=== PATIENT | male | born 1970 | race Caucasian/White ===

== ENCOUNTER 2019-02-16 12:22 | Emergency (ER) | payer OTHER, SELFPAY ==
--- NOTE | 2019-02-16 12:29 | NUR.NOTE ---
Nursing Note: pt has a a cold that has been progressing for the pat week productive dark gree mucous
[2019-02-16 12:30] VITALS: BP 176/100; PULSE 70; RESP 16; TEMP 36; O2SAT 96
--- NOTE | 2019-02-16 12:56 | ED.GENADUL_ITS ---
Discharge Plan Disposition Patient Disposition: HOME Condition: Improving Discharge Details Chief Complaint: RespSymp Clinical Impression: Acute bronchitis Primary Care Provider: None,None ED Provider: Mario Ahmadi Home Meds and New Rx's Prescriptions: New amoxicillin-pot clavulanate 875-125 mg tablet 1 tab PO BID 10 Days Qty: 20 RF: 0 Continued mesalamine [Asacol] 400 MG tablet,delayed release (DR/EC) 400 mg PO BID Qty: 180 RF: 4 lorazepam [Ativan] 1 MG tablet 1 mg PO HS Qty: 30 RF: 1 Discharge Instructions Instructions: Acute Bronchitis (ED) Additional Instructions: Home to rest today. Small, frequent sips of fluids to maintain hydration. Take antibiotics as prescribed. Tylenol and/or ibuprofen as needed for discomfort. Return for any acute concerns. Follow-up with regular doctor if not improving in 5 to 7 days time. Medical Decision Making 48-year-old male, former [id number] smoker, presents with 10+ days of cough, congestion, production of sputum as well as sinus pain and pressure. He is afebrile and well-appearing. Noted to have slightly elevated blood pressure. His exam is reassuring. His history is consistent with a developing bronchitis and sinusitis. I will place him on a course of Augmentin. He understands homecare as well as follow-up/return precautions. Stable for discharge at this time. HPI General Mode of arrival: ambulatory . Date/Time Provider Initiated Documentation: 02/16/19 12:48 . Limitations to Documentation: no limitations . Information obtained by: patient . History of Present Illness 48 year old M presents to the emergency department with the chief complaint of Cough, sinus pressure, production of sputum over 10 days, described as moderate, Quality is described as dull and constant, Patient reports no radiation. Patient started experiencing this day(s) and it has been constant. No relieving factors improve symptom(s), No exacerbating factors reported . Patient notes fever/chills and malaise; denies chest pain, nausea/vomiting and shortness of breath. Patient did receive the following treatments prior to arrival, none Related Data Home Medications Medication Instructions Recorded Confirmed mesalamine [Asacol] 400 mg PO BID #180 10/30/12 lorazepam [Ativan] 1 mg PO HS #30 tab 08/06/14 amoxicillin-pot clavulanate 1 tab PO BID 10 Days #20 tab 02/16/19 Previous Rx's Medication Instructions Recorded amoxicillin-pot clavulanate 1 tab PO BID 10 Days #20 tab 02/16/19 Allergies Allergy/AdvReac Type Severity Reaction Status Date / Time No Known Allergies Allergy Unverified 09/05/14 13:08 General Stated Complaint: RespSymp BIJAN: 4 Review of Systems Review of Systems 6 systems reviewed and otherwise negative Exam Narrative Exam Narrative: GEN: awake, alert, oriented 3. Pleasant, well groomed, interactive. HEAD: Normocephalic, atraumatic ENT: Mucous membranes moist, oropharynx unremarkable, External ear exam unremarkable EYES: PERRL, EOMI NECK: Full ROM, no JEANINE, no menigismus CHEST/RESP: Nontender, clear to auscultation bilateral, no wheeze/rhonchi/rales CARDIOVASCULAR: RRR, no murmur, rub vishal. 2+ Rad pulse bilateral ABDOMEN: Soft, nontender, no mass. +Bowel sounds EXT: Full ROM, no edema, no rash Neuro: Grossly normal neurologic exam, conversant, interactive. Psych: Speech fluent, thoughts congruent, affect normal Course Vital Signs Temperature 36 C L 02/16/19 12:30 Pulse 70 02/16/19 12:30 Respiratory Rate 16 02/16/19 12:30 Blood Pressure 176/100 H 02/16/19 12:30 Pulse Oximetry 96 02/16/19 12:30 Temperature 36 C L 02/16/19 12:30 Temperature Source Skin 02/16/19 12:30 Pulse 70 02/16/19 12:30 Respiratory Rate 16 02/16/19 12:30 Respiratory Effort Non-Labored 02/16/19 12:45 Respiratory Depth Normal 02/16/19 12:37 Blood Pressure 176/100 H 02/16/19 12:30 Blood Pressure Position Sitting 02/16/19 12:30 Pulse Oximetry 96 02/16/19 12:30 Oxygen Delivery Method Room Air 02/16/19 12:30 Oxygen Flow Rate 0 02/16/19 12:30 Pain Level 2 02/16/19 12:30 Lab/Test Results Lab/Test Results: 02/16/19 12:40 Pharynx Streptococcus Screen (MITALI) - Pending POC Strep Test-AGA(Rapid) Start: 09/07/19 12:45 Freq: .Rapid Strep Test Status: Active Protocol: Document 02/16/19 12:49 MMQ (Rec: 02/16/19 12:49 MMQ [id number]) Strep test-AGA(Rapid)-POC POC-Strep test-AGA (Rapid) Negative POC-Strep test-AGA (Rapid) Negative
== END 2019-02-16 13:05 | disposition home or self-care (01) ==
LOC: ER 13:22
PROVIDERS: Emergency Provider Emergency Medicine
DX: J20.9 Acute bronchitis, unspecified (principal); J01.90 Acute sinusitis, unspecified; Z87.891 Personal history of nicotine dependence
CPT/HCPCS: 87880; 99283; 87081

== ENCOUNTER 2020-07-10 13:27 | Emergency (ER) | payer OTHER, SELFPAY ==
[2020-07-10 13:34] VITALS: BP 153/99; PULSE 70; RESP 18; TEMP 36.7; O2SAT 99
--- NOTE | 2020-07-10 13:52 | ED.GENADUL_ITS ---
Discharge Plan Disposition Patient Disposition: HOME Condition: Good Discharge Details Clinical Impression: Olecranon bursitis Primary Care Provider: None,None ED Provider: Jojo Patel Home Meds and New Rx's Prescriptions: No Action cephalexin [Keflex] 250 mg capsule 250 mg PO QID 7 Days Qty: 28 RF: 0 ibuprofen 600 mg tablet 600 mg PO Q6H PRN (Reason: pain) Qty: 60 RF: 3 Discharge Instructions Instructions: Elbow Bursitis (ED) Additional Instructions: At this point, particularly as you are symptoms are improving, this does not appear infectious. Rather, your bursitis is likely associated with your heavy lifting. Please avoid any heavy lifting for the next several days until your symptoms have completely resolved. Please monitor closely for signs of recurrent redness, increased warmth, increased pain. Please have your check this daily. If you develop fever or other new/worsening symptoms please return urgently to the emergency department. Otherwise, please contact your primary care to schedule follow-up appointment in the next 2 weeks for reevaluation. Discharge Data Discharge Date/Time-TO BE ENTERED AT DEPARTURE: 07/10/20 14:19 Medical Decision Making Patient is a pleasant 50-year-old [id number]-hutruxed male presenting today with chief complaint of left elbow swelling. He reports that this began 4 days ago after heavy lifting throughout the course of the day. States that initially the area of swelling was quite large and that had a large amount of surrounding erythema and warmth. His pain, swelling and redness have diminished over the past several days. He has noted that increasing his exertion, such as when he changed tires 2 days ago, did cause increased discomfort. He denies any fevers or chills. No direct trauma to the elbow. No laceration or abrasions of the skin. On exam, patient appears nontoxic. Does have a small area of swelling consistent with olecranon bursitis. The bursa is palpable. It is slightly warm but not very hot. I not appreciate erythema this time. Skin is intact. He has good range of motion, lacking the last few degrees of range of motion in both the extremes of extension and flexion. I discussed potentially draining for culture with the patient. However, it sounds like his symptoms have greatly improved and I do not see point of entry of potential infection. Rather, his history is most working with noninfectious olecranon bursitis. Plan to wrap with an Js wrap. Encourage rest, ice, elevation. He has used Advil to help with his discomfort. Advised that he can continue with this. Strict return precautions were discussed. He did put in a request to see new primary care today. All of his questions and concerns were addressed, he is in agreement with this plan. HPI General Mode of arrival: ambulatory . Date/Time Provider Initiated Documentation: 07/10/20 13:34 . Limitations to Documentation: no limitations . Information obtained by: patient and RN notes reviewed . History of Present Illness 50 year old M presents to the emergency department with the chief complaint of left elbow swelling , described as moderate, with intensity rated at 5. Quality is described as aching, and is localized to the left and upper extremity. Patient reports no radiation. Patient started experiencing this day(s) and it has been other (improving). Immobilization improves symptom(s), Patient notes no other symptoms.; denies fever/chills. Patient did receive the following treatments prior to arrival, none Related Data Home Medications Medication Instructions Recorded Confirmed cephalexin 250 mg capsule 250 mg PO QID 7 Days #28 cap 07/10/20 ibuprofen 600 mg tablet 600 mg PO Q6H PRN #60 tab 07/10/20 Previous Rx's Medication Instructions Recorded cephalexin 250 mg capsule 250 mg PO QID 7 Days #28 cap 07/10/20 ibuprofen 600 mg tablet 600 mg PO Q6H PRN #60 tab 07/10/20 Allergies Allergy/AdvReac Type Severity Reaction Status Date / Time No Known Allergies Allergy Unverified 07/10/20 13:40 General Stated Complaint: Orthopedic BIJAN: 4 Review of Systems Constitutional Constitutional: Reports as per HPI, Denies chills, Denies fever(s), Denies headache(s) and Denies weakness ENT Ears, Nose, Mouth, and Throat: Denies headache(s) Cardiovascular Cardiovascular: Reports as per HPI Respiratory Respiratory: Reports as per HPI and Denies cough Musculoskeletal Musculoskeletal: Reports as per HPI and Denies tingling Integumentary/Breasts Skin/Breast: Reports as per HPI, Reports erythema (reports elbow was red but is improving) and Denies wounds Neurologic Neurologic: Reports as per HPI, Denies headache(s), Denies tingling, Denies paresthesias and Denies weakness [facility] Social History Smoking/Tobacco Use Status: Current every day Tobacco Type: smokeless tobacco Smoking risk assessment performed?: Yes Alcohol Intake: current Alcohol Intake frequency: a few times a month Substance use type: does not use Do you feel safe at home: Yes Do you feel safe in your relationship?: Yes Exam Const General: cooperative, healthy appearing, comfortable, no acute distress, well developed and well groomed Nutritional Appearance: average body habitus and well nourished Orientation: alert and awake Resp Effort & Inspection: normal respiratory effort, able to speak in complete sentences and no respiratory distress Cardio Rate: regular rate Rhythm: regular rhythm Skin General skin exam: no rashes or lesions noted Neuro General: patient alert and patient awake Cognition: normal cognition Speech: speech normal Gait: normal gait Motor: muscle tone normal throughout Sensory Exam: no sensory deficits noted Extrem Left upper extremity: full ROM, normal capillary refill, shoulder/upper arm Details: inspection abnormal, elbow/forearm Details: tenderness Location: of the olecranon, swelling Location: of the olecranon (soft area of sweling consistent with olecranon bursa), normal ROM, warmth (slightly warm over olecranon bursa) and distal pulses intact; no abrasions, no lacerations, no ecchymosis, no crepitus, no penetrating wound and no deformity and wrist Details: normal to inspection, normal ROM and normal vascular exam; no tenderness and no swelling Psych Appearance: grossly normal and well kempt Mental Status: mental status grossly normal Speech and Movement: speech and movement normal Course Vital Signs Vital signs: Vital Signs Temperature 36.7 C 07/10/20 13:34 Pulse 70 07/10/20 13:34 Respiratory Rate 18 07/10/20 13:34 Blood Pressure 153/99 H 07/10/20 13:34 Pulse Oximetry 99 07/10/20 13:34 Temperature 36.7 C 07/10/20 13:34 Temperature Source Skin 07/10/20 13:34 Pulse 70 07/10/20 13:34 Respiratory Rate 18 07/10/20 13:34 Respiratory Effort 07/10/20 13:41 Blood Pressure 153/99 H 07/10/20 13:34 Blood Pressure Position Sitting 07/10/20 13:34 Pulse Oximetry 99 07/10/20 13:34 Oxygen Delivery Method Room Air 07/10/20 13:34 Oxygen Flow Rate 0 07/10/20 13:34 Pain Level 5 07/10/20 13:42
== END 2020-07-10 14:19 | disposition home or self-care (01) ==
PROVIDERS: Emergency Provider Physician Assistant
DX: M70.22 Olecranon bursitis, left elbow (principal)
CPT/HCPCS: 99282; 99283

== ENCOUNTER 2023-07-21 12:25 | Day surgery (SDC) | payer OTHER, SELFPAY ==
[2023-07-21] VITALS (7 sets, daily range): BP systolic 130–155; BP diastolic 64–100; PULSE 63–84; RESP 16–22; TEMP 36.6; O2SAT 94–99; BMI 38.9
[2023-07-21] MEDS: Gabapentin 300 MG CAP 600 MG PO (13:35)
[2023-07-21] MEDS: Acetaminophen 500 MG TAB 1000 MG PO (13:35)
--- NOTE | 2023-07-21 14:03 | W.ANESPRE ---
General Info Date of Service Date Performed: 07/21/23 Height: 5 ft 6 in Weight: 109.316 kg Body Mass Index (BMI): 38.9 Surgical Procedure: Operation Date: 07/21/23 15:40 Proposed Procedure Side Surgeon p Foreign Body Removal Extremity-Sternal Notch Joyce Burks, Meds Allergies and Home Medications Allergies Allergy/AdvReac Type Severity Reaction Status Date / Time No Known Allergies Allergy Unverified 07/21/23 13:18 Home Medication Medication Instructions Recorded ibuprofen 600 mg tablet 600 mg PO Q6H PRN pain #60 tabs 07/10/20 Current Visit Medications: Current Medications Generic Name Dose Route Start Last Admin Trade Name Freq PRN Reason Stop Dose Admin Acetaminophen 1,000 mg 07/21/23 06:00 Acetaminophen 500 Mg Tab PO 07/21/23 23:59 PREOP TIANA Gabapentin 600 mg 07/21/23 06:00 Gabapentin 300 Mg Cap PO 07/21/23 23:59 PREOP TIANA Ringer's Solution 1,000 mls @ 80 mls/hr 07/21/23 06:00 IV 07/21/23 23:59 INFUSION TIANA Cefazolin Sodium/Dextrose 1 gm in 50 mls @ 100 mls/hr 07/21/23 06:00 Ancef Duplex IVPB 07/21/23 23:59 PREOP TIANA IV Miscellaneous Supplies 1 each 07/21/23 06:00 Iv Access IV 07/21/23 23:59 DIRECTED TIANA Sodium Chloride 0 ml 07/21/23 06:00 Normal Saline Flush 10 Ml Syr IV 07/21/23 23:59 PRN PRN Sodium Chloride 0 ml 07/21/23 06:00 Normal Saline 10 Ml Vial IJ 07/21/23 23:59 DIRECTED PRN Sterile Water 0 ml 07/21/23 06:00 Water,Injection,Sterile 10 Ml Vial IJ 07/21/23 23:59 DIRECTED PRN PFSH Active Problems Active Problems: Problem Status Onset Code Foreign body (FB) in soft tissue M79.5 Blunt chest trauma S29.8XXA Medical History Medical History Ulcerative colitis Medical History Comments:: LAST CHEWED TOBACCO AROUND 0900-100AM 07/21/23 Surgical History Surgical History History of chest wound (~07/2023) I @ D S/P skin biopsy on neck History of back surgery hx of ruptured disc Tobacco Smoking/Tobacco Use Status: Current every day Tobacco Type: smokeless tobacco Alcohol Alcohol Intake: current Alcohol intake frequency: a few times a month Substance Use Substance use type: does not use Details: LAST CHEWED TOBACCO AROUND 0900-100AM 07/21/23 Vital Signs and Lab Results Vital Signs Most Recent Vital Signs in EMR: Most Recent Vital Signs Temp Pulse Resp BP Pulse Ox 36.6 C 63 17 155/100 H 95 07/21/23 13:19 07/21/23 13:19 07/21/23 13:19 07/21/23 13:19 07/21/23 13:19 Lab Results Blood Type / Crossmatch: No Data to Display Complete Blood Count: No Data to Display Complete Metabolic Panel: No Data to Display Liver Function Panel: No Data to Display Coagulation Panel: No Data to Display Cardiac Panel: No Data to Display Arterial Blood Gas: No Data to Display Venous Blood Gas: No Data to Display Pancreas Panel: No Data to Display Thyroid Panel: No Data to Display Infectious Disease: No Data to Display Blood Cultures: No Data to Display Toxicology Panel: No Data to Display Anesthesia Assessment and Plan Anesthesia History Personal History: No History of Anesthesia Complications Family History: No Family History of Anesthesia Complications Exercise Tolerance Exercise Tolerance: Metabolic Equivalents>4 Cardiac & Pulmonary Exam Cardiac Exam: Normal S1/S2 Heart Sounds Pulmonary Exam: Clear Bilateral Breath Sounds Implantable Cardiac Device Does patient have a Pacemaker or an ICD?: No Airway Exam Known Difficult Airway: No Mallampati Class: 4 Mouth Opening: Narrow (< 3cm) Thyromental Distance: Less than 3 cm Facial Hair: Full [place] Neck Range of Motion: Full ROM Neck Circumference: Thick Teeth Condition: Normal Dentition ASA Classification ASA Score: ASA 2 Emergency Case?: No NPO Status NPO Status: NPO Clears >2 hours, Solids >8 hours Anesthesia Plan Resuscitation Status: Full Code Anesthesia Technique: MAC Anesthesia Airway Planned: Natural Airway Monitors Used: Standard Monitors Preoperative Comments:: 53 yo male with wood above his sternum. Sig PMHx: denies major.
[2023-07-21] MEDS: Lactated Ringers 1,000 ML 80 ML IV (14:04)
[2023-07-21] MEDS: ceFAZolin 1 GM/50 ML BAG IVPB (15:30)
[2023-07-21] MEDS: Lidocaine 1% Multi-Dose W/EPI 1/100,000 50 ML VIAL (15:42)
--- NOTE | 2023-07-21 16:01 | W.PM.DSUDISC ---
Date of service: 07/21/23 Time of Service: 16:01 Discharge Plan Disposition Patient Disposition: Home Condition: Improving Discharge Details Reason For Visit: insicion and drainage Attending Provider: Joyce Burks Primary Care Provider: None,None Home Meds and New Rx's Prescriptions: New cephalexin 500 mg capsule 500 mg PO BID 7 Days Qty: 14 0RF tramadol 50 mg tablet 50 mg PO Q4H PRNQty: 10 0RF Continued ibuprofen 600 mg tablet 600 mg PO Q6H PRN (Reason: pain) Qty: 60 3RF Rx Instructions: take w/ food! Do NOT take on an empty stomach Discharge Instructions Additional Instructions: ? ACTIVITY: The day of surgery should be spent resting. However, you can be up for short periods of time, I.E., going to the bathroom or kitchen. Avoid lifting or straining. On the day following surgery, you can be up and about as desired. ? LIFTING: Restrict your lifting to no more than five (5) pounds for two weeks after surgery. ??We will decide when you are done with restrictions and when you can return to work, at your follow-up appointment.? ? ? DIET: There are no dietary restrictions following surgery. However, you may want to start with small amounts of liquids to avoid nausea the day of surgery. ? INCISION CARE: .? After 24 hours, remove packing; you may shower, allow the water to run into the wound. Re-pack w/ packing once a day and cover w/ dressing. An ice bag may be applied to the incision for 72 hours following surgery. DRIVING: NO driving for 24 after surgery, or if you are still taking narcotic pain medication.? ? MEDICATIONS: Alternate Tylenol 1000mg by mouth every 8 hours and Ibuprofen 600mg every 6 hours. ?Make sure you take ibuprofen with food and not on an empty stomach. ?Take the Tylenol and ibuprofen continuously for the first 72hrs- not just when you have pain.? Use the tramadol for breakthrough pain/pain >7.? Use ICE!?? Twenty minutes on, and then off, continuously for the first 72hours. If you are taking narcotic pain medication, follow the instructions on the label and do not drive. Pain medications can make you very constipated. Make sure you are moving your bowels daily. If not, take Miralax or Milk of Magnesia.?? Anesthesia makes you very constipated.? Take a dose of milk of magnesia the morning after surgery. ? REPORT: Unusual swelling, severe pain, unresolved nausea, signs of infection, or difficulty in urination to your surgeon. Follow up in clinic with Dr. Burks on: .? [phone] Stand Alone Forms: Anesthesia Discharge Inst., Elyse Randolph ([facility]) Referrals: Joyce Burks DO [OSTEOPATHIC DOCTOR] - 08/25/23 11:00 am Activity:: see above Remove Dressings/Wound Care:: 24 hours Shower/Bathe:: 24 hours Diet:: As Tolerated DS: Diagnosis Discharge Diagnosis (1) Blunt chest trauma: Status: Acute (2) Foreign body (FB) in soft tissue: Status: Acute
--- NOTE | 2023-07-21 16:04 | W.ANESPOSTOP ---
Postoperative Evaluation Date, Time and Location Date Performed: 07/21/23 Time Performed: 16:04 Patient Location: PACU Vital Signs Most Recent Imported Vital Signs: Most Recent Vital Signs Temp Pulse Resp BP Pulse Ox 36.6 C 63 17 155/100 H 95 07/21/23 13:19 07/21/23 13:19 07/21/23 13:19 07/21/23 13:19 07/21/23 13:19 Pain Score Most Recent Pain Score: Most Recent Pain Score Pain Level 1 07/21/23 13:19 Assessment Mental Status: Awake (Alert & Oriented to Patient Baseline) Airway and Respiratory Function: Patent airway with normal (patient baseline) respiratory exam Cardiovascular Function: Hemodynamically Stable Hydration Status: Adequately Hydrated Nausea & Vomiting: No Nausea or Vomiting Pain: Pt. Denies Any Pain Peripheral Nerve Block: Patient did not receive a nerve block
--- NOTE | 2023-07-21 16:12 | W.PM.OP ---
Date of service: 07/21/23 Time of Service: 16:12 Operative Note Operative Note DATE OF PROCEDURE: 07/21/23 PRE-OP DIAGNOSIS: infected traumatic wound POST-OP DIAGNOSIS: same PROCEDURE: wound exploration and removal foreign body SURGEON: Joyce Burks ANESTHESIA TYPE: Local By Surgeon and General LMA/ETT Refer to Anesthesia Record ESTIMATED BLOOD LOSS: 5 PATHOLOGY: none sent COMPLICATIONS: None Patient was transported to: PACU Patient's condition: stable Procedure Description: Patient is a 53-year-old male who Saturday sustained blunt chest trauma from the following limb of the tree. He has noticed increased pain redness drainage and swelling from the wound. And it is not healing. It is mildly tender. We attempted exploration in the clinic but patient did not tolerate this well. He did go have chest x-ray and sternal films which showed no fracture. Patient will undergo anesthesia and wound exploration and debridement. Informed consent is obtained explaining risks and benefits of the procedure including but not limited to: Bleeding, infection, pneumonia, blood clots, complications from anesthesia, poor cosmesis, need for routine surgery, reaction to local anesthetics. Patient is brought to the op room suite and placed in the supine position. Anesthesia is administered per the department of anesthesia. Patient prepped and free draped in the usual sterile fashion using a Betadine scrub solution. He did receive preop antibiotics. A timeout is performed. The wound is infiltrated with quarter percent Marcaine with epi 20 cc. Tractors were used to visualize the wound. The wound does go down to the sternum. There are few wood fragments that are debrided. He does not appear to penetrate into the chest. Bone feels intact. The wound is irrigated with 100 cc of saline. No bleeding is noted. It is packed with sterile gauze. Compression sterile dressings are applied. Sponge counts are correct. Patient tolerated procedure well without complication transferred to recovery room in stable condition. This document was created with voice activated software and may contain errors.
== END 2023-07-21 17:15 | disposition home or self-care (01) ==
PROVIDERS: Visit Provider Surgery
PROC: (CPT 20101; principal; 2023-07-21 15:30)
DX: S21.149A Puncture wound with foreign body of unspecified front wall of thorax without penetration into thoracic cavity, initial encounter; M79.5 Residual foreign body in soft tissue; L08.9 Local infection of the skin and subcutaneous tissue, unspecified; F17.220 Nicotine dependence, chewing tobacco, uncomplicated; W22.8XXA Striking against or struck by other objects, initial encounter
CPT/HCPCS: 20101; 87077; 87070; 87075; 87186; 87205; J0690; J2001; J2004; J2704

== ENCOUNTER → 2023-07-21 12:53 | Outpatient (CLI) | payer OTHER, SELFPAY ==
--- NOTE | 2023-07-21 12:00 | DI.RAD_ITS ---
Exam(s) XR STERNUM EXAM: XR STERNUM CLINICAL HISTORY: blunt chest trauma, foreign body,m79.5,S29.8xxa. TECHNIQUE: 2D digital imaging was performed. COMPARISON: No exams were available for comparison FINDINGS: Two views: There is no obvious sternal fracture. No radiopaque foreign body. IMPRESSION: No sternal fracture identified on these 2 plain film images. DATA REPOSITORY: RADIATION DOSE DELIVERED:
--- NOTE | 2023-07-21 12:00 | DI.RAD_ITS ---
Exam(s) XR CHEST 2V PA LATERAL EXAM: XR CHEST 2V PA LATERAL CLINICAL HISTORY: blunt chest trauma,foreign body,M79.5,s29.8xxa. TECHNIQUE: 2D digital imaging was performed. COMPARISON: CR XR STERNUM from 07/21/2023 FINDINGS: 2 views: Heart size is normal. The mediastinum is not widened. Lungs are clear. No infiltrates nor pleural effusions. IMPRESSION: No acute pulmonary findings. DATA REPOSITORY: RADIATION DOSE DELIVERED:
== END ==
PROVIDERS: Visit Provider Surgery
DX: S29.8XXA Other specified injuries of thorax, initial encounter (principal); M79.5 Residual foreign body in soft tissue; X58.XXXA Exposure to other specified factors, initial encounter
CPT/HCPCS: 71046; 71120